=== PATIENT | male | born 1955 | race Caucasian/White ===

== ENCOUNTER 2019-07-01 11:17 | Observation (INO) | payer BC ==
[2019-07-01] MEDS: ASPIRIN 81 MG PO STA ×2 (11:49→11:56)
--- NOTE | 2019-07-01 11:51 | ED ---
General Adult HPI - General Chief complaint: Chest Pain Stated complaint: Chest pain Time Seen by Provider: 07/01/19 11:32 Source: patient Mode of arrival: ambulatory Limitations: no limitations - History of Present Illness Initial comments: Dictation was produced using e-volo dictation software. please excuse any grammatical, word or spelling errors. Chief Complaint: 64-year-old male with no significant comorbidities presents with chest pain. History of Present Illness: 64-year-old male who presents today with chest pain. Patient states he has no medical history. He only takes Viagra as needed. 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 States her pain radiated down his left upper extremity. He also had some nausea and diaphoresis along with this episode. Patient denies any cardiac history. Patient has had symptoms like this approximately 2-3 weeks ago. Patient is concerned that he was having a heart attack came to the emergency department. He states he still has some mild chest symptoms. He states he did strain his pectoral muscle recently after reaching for an object. Patient describes this pain as crushing without exacerbating or mitigating symptoms. States his pain was worse prior to arrival however he still feels it currently. The ROS documented in this emergency department record has been reviewed and confirmed by me. Those systems with pertinent positive or negative responses have been documented in the HPI. All other systems are other negative and/or noncontributory. PHYSICAL EXAM: General Impression: Alert and oriented x3, not in acute distress HEENT: Normocephalic atraumatic, extra-ocular movements intact, pupils equal and reactive to light bilaterally, mucous membranes moist. Cardiovascular: Heart regular rate and rhythm, S1&S2 audible, no murmurs, rubs or gallops Chest: Lungs clear to auscultation bilaterally, no rhonchi, no wheeze, no rales Abdomen: Bowel sounds present, abdomen soft, non-tender, non-distended, no organomegaly Musculoskeletal: Pulses present and equal in all extremities, no peripheral edema Motor: no focal deficits noted Neurological: CN II-XII grossly intact, no focal motor or sensory deficits noted Skin: Intact with no visualized rashes Psych: Normal affect and mood ED course: 64-year-old male with chief complaint of ACS-type symptoms. Vital signs upon arrival shows blood pressure 184/109, worse vital signs within acceptable limits. EKG was obtained on the be abnormal. Discussed patient case immediately with Dr. Thakkar who does not feel that patient's EKG represents ST segment elevation IN. EKG shows changes in the inferior leads with widened QRS. Patient has any cardiac history. There is concern given his symptomatology and abnormal EKG Dr. Whelan was contacted. Dr. Whelan reviewed EKG and evaluate patient at bedside. Dr. Thakkar at bedside recommended lipid panel. Repeat EKG 1 hour. He states to withhold aspirin at this time. Recommends 10 mg IV labetalol and 50 mg losartan twice a day.Laboratory evaluation obtained. CBC, coag Panel, metabolic panel is unremarkable. Cardiac enzymes negative. Chest x-ray is nonacute. Computed tomography scan of the thoracic aorta shows no findings of aneurysm or dissection. Patient reevaluated at bedside found to be stable medical condition. Will admit patient for acute coronary syndrome. Per recommendation by cardiology no blood thinners or antiplatelet medications at this time. Patient understandable agreeable to disposition. Discussed patient case with Dr. Arrington was went except patient's care. EKG interpretation: Ventricular rate 62, sinus rhythm, right bundle branch block,. Interval 140, QRS 144, QTc 412. T-wave inversions inferior leads. No old EKG for comparison. - Related Data Home Medications Medication Instructions Recorded Confirmed Aspirin EC [Ecotrin Low Dose] 81 mg PO DAILY 07/01/19 07/01/19 Fluticasone Nasal [place] [Flonase 1 spr EA NOSTRIL DAILY 07/01/19 07/01/19 Nasal [place]] Ibuprofen [Motrin Ib] 400 mg PO Q6H PRN 07/01/19 07/01/19 Tadalafil [Cialis] 30 mg PO DAILY PRN 07/01/19 07/01/19 Allergies Allergy/AdvReac Type Severity Reaction Status Date / Time No Known Allergies Allergy Verified 07/01/19 11:44 Review of Systems ROS Statement: Those systems with pertinent positive or pertinent negative responses have been documented in the HPI. ROS Other: All systems not noted in ROS Statement are negative. Past Medical History Past Medical History: No Reported History History of Any Multi-Drug Resistant Organisms: None Reported Past Surgical History: No Surgical Hx Reported Past Psychological History: No Psychological Hx Reported Smoking Status: Never smoker Past Alcohol Use History: None Reported Past Drug Use History: Marijuana General Exam Limitations: no limitations Course Vital Signs 07/01/19 07/01/19 07/01/19 11:22 11:50 12:10 Temperature 98.1 F Pulse Rate 82 82 74 Respiratory 18 15 10 L Rate Blood Pressure 184/109 180/104 186/105 O2 Sat by Pulse 96 94 L 93 L Oximetry 07/01/19 07/01/19 07/01/19 12:20 12:30 12:40 Temperature Pulse Rate 79 57 L 59 L Respiratory 25 H 12 12 Rate Blood Pressure 159/94 159/94 164/105 O2 Sat by Pulse 95 94 L 93 L Oximetry 07/01/19 07/01/19 13:00 13:10 Temperature Pulse Rate 61 Respiratory 11 L Rate Blood Pressure 152/101 135/85 O2 Sat by Pulse 95 Oximetry Medical Decision Making - Lab Data Result diagrams: 07/01/19 11:46 07/01/19 11:46 Lab Results 07/01/19 07/01/19 07/01/19 Range/Units 11:46 11:46 11:46 WBC 10.0 (3.8-10.6) k/uL RBC 5.52 (4.30-5.90) m/uL Hgb 17.2 (13.0-17.5) gm/dL Hct 50.4 (39.0-53.0) % MCV 91.3 (80.0-100.0) fL MCH 31.2 (25.0-35.0) pg MCHC 34.1 (31.0-37.0) g/dL RDW 12.1 (11.5-15.5) % Plt Count 280 (150-450) k/uL Neutrophils % 54 % Lymphocytes % 32 % Monocytes % 7 % Eosinophils % 4 % Basophils % 1 % Neutrophils # 5.3 (1.3-7.7) k/uL Lymphocytes # 3.2 (1.0-4.8) k/uL Monocytes # 0.7 (0-1.0) k/uL Eosinophils # 0.4 (0-0.7) k/uL Basophils # 0.1 (0-0.2) k/uL PT 9.8 (9.0-12.0) sec INR 0.9 (<1.2) APTT 23.4 (22.0-30.0) sec Sodium 140 (137-145) mmol/L Potassium 5.0 (3.5-5.1) mmol/L Chloride 106 (98-107) mmol/L Carbon Dioxide 23 (22-30) mmol/L Anion Gap 11 mmol/L BUN 13 (9-20) mg/dL Creatinine 0.83 (0.66-1.25) mg/dL Est GFR (CKD-EPI)AfAm >90 (>60 ml/min/1.73 sqM) Est GFR (CKD-EPI)NonAf >90 (>60 ml/min/1.73 sqM) Glucose 85 (74-99) mg/dL Calcium 9.6 (8.4-10.2) mg/dL Magnesium 2.1 (1.6-2.3) mg/dL Total Bilirubin 0.7 (0.2-1.3) mg/dL AST 34 (17-59) U/L ALT 20 L (21-72) U/L Alkaline Phosphatase 117 (38-126) U/L Troponin I (0.000-0.034) ng/mL Total Protein 7.4 (6.3-8.2) g/dL Albumin 4.5 (3.5-5.0) g/dL Triglycerides 187 H (<150) mg/dL Cholesterol 154 (<200) mg/dL LDL Cholesterol, Calc 78 (0-99) mg/dL HDL Cholesterol 39 L (40-60) mg/dL 07/01/19 Range/Units 11:46 WBC (3.8-10.6) k/uL RBC (4.30-5.90) m/uL Hgb (13.0-17.5) gm/dL Hct (39.0-53.0) % MCV (80.0-100.0) fL MCH (25.0-35.0) pg MCHC (31.0-37.0) g/dL RDW (11.5-15.5) % Plt Count (150-450) k/uL Neutrophils % % Lymphocytes % % Monocytes % % Eosinophils % % Basophils % % Neutrophils # (1.3-7.7) k/uL Lymphocytes # (1.0-4.8) k/uL Monocytes # (0-1.0) k/uL Eosinophils # (0-0.7) k/uL Basophils # (0-0.2) k/uL PT (9.0-12.0) sec INR (<1.2) APTT (22.0-30.0) sec Sodium (137-145) mmol/L Potassium (3.5-5.1) mmol/L Chloride (98-107) mmol/L Carbon Dioxide (22-30) mmol/L Anion Gap mmol/L BUN (9-20) mg/dL Creatinine (0.66-1.25) mg/dL Est GFR (CKD-EPI)AfAm (>60 ml/min/1.73 sqM) Est GFR (CKD-EPI)NonAf (>60 ml/min/1.73 sqM) Glucose (74-99) mg/dL Calcium (8.4-10.2) mg/dL Magnesium (1.6-2.3) mg/dL Total Bilirubin (0.2-1.3) mg/dL AST (17-59) U/L ALT (21-72) U/L Alkaline Phosphatase (38-126) U/L Troponin I <0.012 (0.000-0.034) ng/mL Total Protein (6.3-8.2) g/dL Albumin (3.5-5.0) g/dL Triglycerides (<150) mg/dL Cholesterol (<200) mg/dL LDL Cholesterol, Calc (0-99) mg/dL HDL Cholesterol (40-60) mg/dL Disposition Clinical Impression: Chest pain Disposition: ADMITTED IP TO THIS [facility] Condition: Fair Referrals: Sen Whelan MD [STAFF PHYSICIAN] - 1 Week (Follow-up with Dr. Whelan/Sarahy Hidalgo/Gladis Vilchis in 2 weeks) None,Stated [Primary Care Provider] - 1-2 days Decision Time: 14:11
[2019-07-01] MEDS ORDERED: LABETALOL 5 MG/ML VIAL MDV IVP STA (11:56)
[2019-07-01 12:17] LABS: INR 0.9 (<1.2); Partial Thromboplastin Time 23.4 sec (22.0-30.0); Prothrombin Time 9.8 sec (9.0-12.0)
[2019-07-01 12:20] LABS: Basophils # (A) 0.1 k/uL (0-0.2); Basophils % (A) 1 %; Eosinophils # (A) 0.4 k/uL (0-0.7); Eosinophils % (A) 4 %; HCT 50.4 % (39.0-53.0); HGB 17.2 gm/dL (13.0-17.5); Lymphocytes # (A) 3.2 k/uL (1.0-4.8); Lymphocytes % (A) 32 %; MCH 31.2 pg (25.0-35.0); MCHC 34.1 g/dL (31.0-37.0); MCV 91.3 fL (80.0-100.0); Mean Platelet Volume 6.3; Monocytes # (A) 0.7 k/uL (0-1.0); Monocytes % (A) 7 %; Neutrophils # (A) 5.3 k/uL (1.3-7.7); Neutrophils % (A) 54 %; Platelet Count 280 k/uL (150-450); RBC 5.52 m/uL (4.30-5.90); RDW 12.1 % (11.5-15.5)
[2019-07-01 12:24] LABS: ALT 20 U/L (21-72); AST 34 U/L (17-59); African American GFR (CKD) >90 (>60 ml/min/1.73 sqM); Albumin 4.5 g/dL (3.5-5.0); Alkaline Phosphatase 117 U/L (38-126); Anion Gap 11 mmol/L; Blood Urea Nitrogen 13 mg/dL (9-20); Calcium 9.6 mg/dL (8.4-10.2); Carbon Dioxide 23 mmol/L (22-30); Chloride 106 mmol/L (98-107); Cholesterol 154 mg/dL (<200); Glucose 85 mg/dL (74-99); HDL Cholesterol 39 mg/dL (40-60); LDL Cholesterol,Calculated 78 mg/dL (0-99); Magnesium 2.1 mg/dL (1.6-2.3); Sodium 140 mmol/L (137-145); Total Bilirubin 0.7 mg/dL (0.2-1.3); Total Protein 7.4 g/dL (6.3-8.2); Triglycerides 187 mg/dL (<150)
--- NOTE | 2019-07-01 12:31 | XR ---
EXAMINATION TYPE: XR chest 2V DATE OF EXAM: 07/01/2019 COMPARISON: NONE HISTORY: Chest pain and shortness of breath TECHNIQUE: Frontal and lateral views of the chest are obtained. FINDINGS: There is no focal air space opacity, pleural effusion, or pneumothorax seen. The cardiac silhouette size is within normal limits. Aorta is dense and tortuous. There are overlying cardiac le ads. Suspect some basilar subsegmental atelectatic changes are present. The osseous structures are in tact. Increased AP diameter of the chest is noted. IMPRESSION: Subsegmental atelectasis. Additional findings above, follow-up as indicated.
[2019-07-01] MEDS: LOSARTAN 50 MG TAB PO SCH ×2 (12:44→20:01)
--- NOTE | 2019-07-01 13:25 | P.CRDCN ---
History of Present Illness History of present illness: This is Dr. Whelan dictating a consult on this patient The patient was interviewed and examined by me Call to the emergency room to evaluate this patient with chest discomfort and abnormal ECG IMPRESSION / ASSESSMENT: Hypertensive urgency, symptomatic The chest discomfort radiating through the back and left arm Right bundle branch block left anterior fascicular block on 12-lead EKG Noncompliance with antihypertensive therapy as prescribed by his [facility] primary care physician as above PLAN: IV labetalol 10 mg 1 dose By mouth losartan 50 mg twice daily Discussed with ER physician Atorvastatin 40 mg daily Hold off on aspirin CT of the chest to assess the thoracic aorta Serial enzymes Serial ECGs Lipid panel HPI This morning the patient felt disoriented and had a vague sensation in the chest with numbness down the left arm. This week sensation also radiated through to the back He has a history of hypertension and his blood pressure has been elevated lately. He stopped taking his antihypertensive therapy that was prescribed by Dr. Lyles ROS: No fever chills or rigors, no cough, phlegm or expectoration, no nausea, vomiting or diarrhea, no hematuria, dysuria, no musculoskeletal complaints, no strokes or seizures, no skin lesions. EXAMINATION: 180 105 mmHg, pulse rate in the 70s no JVD Patient looks fairly comfortable It sounds are normal no rhonchi no crackles Heart sounds S1 and S2 are normal no murmurs or gallop or rub Abdomen is soft nontender Extremity is warm no edema REVIEW OF LABS, ECG & MEDICAL DATA labs are reviewed sodium 140, potassium 5.0, BUN 13 creatinine 0.83, troponin normal, triglycerides 187, total cholesterol 154 LDL 78 HDL 39 Normal white count hemoglobin 17.2 Never smoker Past Medical History Past Medical History: No Reported History History of Any Multi-Drug Resistant Organisms: None Reported Past Surgical History: No Surgical Hx Reported Past Psychological History: No Psychological Hx Reported Smoking Status: Never smoker Past Alcohol Use History: None Reported Past Drug Use History: Marijuana Medications and Allergies Home Medications Medication Instructions Recorded Confirmed Type Aspirin EC [Ecotrin Low Dose] 81 mg PO DAILY 07/01/19 07/01/19 History Fluticasone Nasal [place] [Flonase 1 spr EA NOSTRIL DAILY 07/01/19 07/01/19 History Nasal [place]] Ibuprofen [Motrin Ib] 400 mg PO Q6H PRN 07/01/19 07/01/19 History Tadalafil [Cialis] 30 mg PO DAILY PRN 07/01/19 07/01/19 History Allergies Allergy/AdvReac Type Severity Reaction Status Date / Time No Known Allergies Allergy Verified 07/01/19 11:44 Physical Exam Vitals: Vital Signs Temp Pulse Resp BP Pulse Ox 07/01/19 13:10 135/85 07/01/19 13:00 61 11 L 152/101 95 07/01/19 12:40 59 L 12 164/105 93 L 07/01/19 12:30 57 L 12 159/94 94 L 07/01/19 12:20 79 25 H 159/94 95 07/01/19 12:10 74 10 L 186/105 93 L 07/01/19 11:50 82 15 180/104 94 L 07/01/19 11:22 98.1 F 82 18 184/109 96 Intake and Output 06/30/19 07/01/19 07/01/19 22:59 06:59 14:59 Other: Weight 108.862 kg Results 07/01/19 11:46 07/01/19 11:46 Cardiac Enzymes 07/01/19 07/01/19 Range/Units 11:46 11:46 AST 34 (17-59) U/L Troponin I <0.012 (0.000-0.034) ng/mL Coagulation 07/01/19 Range/Units 11:46 PT 9.8 (9.0-12.0) sec APTT 23.4 (22.0-30.0) sec Lipids 07/01/19 Range/Units 11:46 Triglycerides 187 H (<150) mg/dL Cholesterol 154 (<200) mg/dL HDL Cholesterol 39 L (40-60) mg/dL CBC 07/01/19 Range/Units 11:46 WBC 10.0 (3.8-10.6) k/uL RBC 5.52 (4.30-5.90) m/uL Hgb 17.2 (13.0-17.5) gm/dL Hct 50.4 (39.0-53.0) % Plt Count 280 (150-450) k/uL Comprehensive Metabolic Panel 07/01/19 Range/Units 11:46 Sodium 140 (137-145) mmol/L Potassium 5.0 (3.5-5.1) mmol/L Chloride 106 (98-107) mmol/L Carbon Dioxide 23 (22-30) mmol/L BUN 13 (9-20) mg/dL Creatinine 0.83 (0.66-1.25) mg/dL Glucose 85 (74-99) mg/dL Calcium 9.6 (8.4-10.2) mg/dL AST 34 (17-59) U/L ALT 20 L (21-72) U/L Alkaline Phosphatase 117 (38-126) U/L Total Protein 7.4 (6.3-8.2) g/dL Albumin 4.5 (3.5-5.0) g/dL Current Medications Generic Name Dose Route Start Last Admin Trade Name Freq PRN Reason Stop Dose Admin Losartan Potassium 50 mg 07/01/19 12:00 07/01/19 12:44 Cozaar PO 50 mg BID KYARA Administration Intake and Output 06/30/19 07/01/19 07/01/19 22:59 06:59 14:59 Other: Weight 108.862 kg Patient Weight 07/02/19 06:59 Weight 108.862 kg 07/01/19 11:46 07/01/19 11:46
--- NOTE | 2019-07-01 13:50 | CT ---
EXAMINATION TYPE: CT angio thor/abd pel aorta DATE OF EXAM: 07/01/2019 COMPARISON: None. HISTORY: chest and back pain rule out dissection. CT DLP: 2351.8 mGycm. Automated Exposure Control for Dose Reduction was Utilized. CONTRAST: CTA scan of the thorax, abdomen and pelvis is performed without and with IV Contrast, patient injecte d with 100 mL of Isovue 370. 3-D reconstruction images are created and a workstation and reviewed. FINDINGS: VASCULAR: There is a 4 vessel origin from aortic arch which is normal variant. There is patent celiac artery, SMA, bilateral renal arteries with 3 identified bilaterally and JIMY. There is patent iliac a rteries into bifurcation and patent femoral arteries bilateral groin into bifurcation. No significant plaque or stenosis. No aneurysm. No linear hypodensity to suggest dissection. LUNGS: Dependent and linear atelectasis bilateral lower lobes. Slightly elevated left hemidiaphragm. There is no pleural effusion or pneumothorax seen. The tracheobronchial tree is patent. No suspici ous masses. MEDIASTINUM: There are prominent thoracic lymph nodes throughout the mediastinum without definitive a bnormal enlargement. No cardiomegaly or pericardial effusion is seen. LIVER/GB: No significant abnormality is appreciated. PANCREAS: No significant abnormality is seen. SPLEEN: No significant abnormality is seen. ADRENALS: No significant abnormality is seen. KIDNEYS: No significant abnormality is seen. BOWEL: Some scattered diverticula in the left and sigmoid colon. Normal-appearing appendix from cecum . Suboptimal evaluation of stomach due to poor distention. GENITAL ORGANS: Scattered pelvic phleboliths. LYMPH NODES: No greater than 1cm abdominal or pelvic lymph nodes are appreciated. OSSEOUS STRUCTURES: S-shaped scoliosis. Multilevel spurring and disc space narrowing. Hemangioma righ t L3 level. Some facet arthropathy lower lumbar levels. OTHER: No significant additional abnormality is seen. IMPRESSION: No aortic aneurysm or dissection. No suspicious acute findings identified.
[2019-07-01] MEDS ORDERED: NITROGLYCERIN SL TABS 0.4 MG TAB SUBLINGUAL PRN (14:11)
[2019-07-01] MEDS ORDERED: ACETAMINOPHEN TAB 325 MG TAB PO PRN (16:42)
[2019-07-01] MEDS ORDERED: hydrALAZINE HCL 20 MG/ML 1 ML VIAL IVP PRN (16:43)
--- NOTE | 2019-07-01 23:27 | P.HPIM ---
History of Present Illness H&P Date: 07/01/19 Chief Complaint: Chest pain Patient is a 64-year-old male with a known history of hypertension, currently not taking any medications came to ER with complaints of chest pain. Patient has been having on and off chest pains recently. 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 Chest pain radiated to the left arm like a shooting down pain and felt ringing in the ears. Chest pain is mainly across the anterior chest. Last about 2 minutes. Associated nausea and diaphoresis. No history of prior cardiac problems. Patient has been having symptoms for the past 2-3 weeks on and off lasting about 1-2 minutes. Due to sudden radiation of the pain made him concerned about heart attack and came to ER for evaluation. Patient's blood pressure was 184/109. No cough or sputum production. No headache or dizziness or lightheadedness. No fever no chills. No recent illnesses. EKG showed right bundle branch block. Troponin 1 negative Chest x-ray showed no acute cardiopulmonary process. Troponin 2 negative LDL 78 Review of Systems Constitutional: Patient denies any fever or chills . No generalized weakness or weight loss. Abdomen: Patient denied nausea vomiting and diarrhea and abdominal pain. Cardiovascular: Patient denies any chest pain or short of breath no palpitations. Respiratory: patient denied any cough is from production. No shortness of breath Neurologic: Patient denied any numbness or tingling headache. Musculoskeletal: Patient denies any complaints of joint swelling or deformity. Skin: Negative Psychiatric: Negative Endocrine: No heat or cold intolerance. No recent weight gain. Genitourinary: No dysuria or hematuria. All other 14 point ROS negative except the above Past Medical History Past Medical History: Hypertension Additional Past Medical History / Comment(s): sinus issues/ headaches History of Any Multi-Drug Resistant Organisms: None Reported Past Surgical History: Tonsillectomy Past Anesthesia/Blood Transfusion Reactions: No Reported Reaction Past Psychological History: No Psychological Hx Reported Smoking Status: Never smoker Past Alcohol Use History: None Reported Past Drug Use History: Marijuana Medications and Allergies Home Medications Medication Instructions Recorded Confirmed Type Aspirin EC [Ecotrin Low Dose] 81 mg PO DAILY 07/01/19 07/01/19 History Fluticasone Nasal [place] [Flonase 1 spr EA NOSTRIL DAILY 07/01/19 07/01/19 History Nasal [place]] Ibuprofen [Motrin Ib] 400 mg PO Q6H PRN 07/01/19 07/01/19 History Tadalafil [Cialis] 30 mg PO DAILY PRN 07/01/19 07/01/19 History Allergies Allergy/AdvReac Type Severity Reaction Status Date / Time No Known Allergies Allergy Verified 07/01/19 11:44 Physical Exam Vitals: Vital Signs Temp Pulse Pulse Resp BP BP Pulse Ox 07/01/19 16:13 178/103 07/01/19 15:58 59 L 18 07/01/19 15:51 98.2 F 59 L 18 187/104 95 07/01/19 15:00 94 L 07/01/19 14:30 143/88 07/01/19 13:30 86 22 135/85 95 07/01/19 13:10 135/85 07/01/19 13:00 61 11 L 152/101 95 07/01/19 12:40 59 L 12 164/105 93 L 07/01/19 12:30 57 L 12 159/94 94 L 07/01/19 12:20 79 25 H 159/94 95 07/01/19 12:10 74 10 L 186/105 93 L 07/01/19 11:50 82 15 180/104 94 L 07/01/19 11:22 98.1 F 82 18 184/109 96 Intake and Output 07/01/19 07/01/19 07/01/19 06:59 14:59 22:59 Other: Voiding Method Toilet Weight 108.862 kg PHYSICAL EXAMINATION: Patient is lying in the bed comfortably, no acute distress, awake alert and oriented.. HEENT: Normocephalic. Neck is supple. Pupils reactive. Nostrils clear. Oral cavity is moist. Ears reveal no drainage. Neck reveals no JVD, carotid bruits, or thyromegaly. CHEST EXAMINATION: Trachea is central. Symmetrical expansion. Lung lobo clear to auscultation and percussion. CARDIAC: Normal S1, S2 with no gallops. No murmurs ABDOMEN: Soft. Bowel sounds normal. No organomegaly. No abdominal bruits. Extremities: reveal no edema. No clubbing or cyanosis Neurologically awake, alert, oriented x3 with well-coordinated movements. No focal deficits noted Skin: No rash or skin lesions. Psychiatric: Coperative. Nonsuicidal Musculoskeletal: No joint swelling or deformity. Normal range of motion. Results CBC & Chem 7: 07/01/19 11:46 07/01/19 11:46 Labs: Abnormal Lab Results - Last 24 Hours (Table) 07/01/19 Range/Units 11:46 ALT 20 L (21-72) U/L Triglycerides 187 H (<150) mg/dL HDL Cholesterol 39 L (40-60) mg/dL Thrombosis Risk Factor Assmnt - DVT/VTE Prophylaxis DVT/VTE Prophylaxis: Pharmacologic Prophylaxis ordered - Choose All That Apply Any of the Below Risk Factors Present?: Yes Each Factor Represents 1 point: Obesity (BMI >25) Other Risk Factors: Yes Each Risk Factor Represents 2 Points: Age 61-74 years Thrombosis Risk Factor Assessment Total Risk Factor Score: 3 Thrombosis Risk Factor Assessment Level: Moderate Risk Assessment and Plan Assessment: Hypertensive urgency. Chest pain. Rule out acute coronary syndrome Noncompliance with blood pressure medications. Abnormal EKG. rBBB and anterior fascicular block. No history of smoking History of marijuana use DVT prophylaxis with early ambulation Plan: Patient will be continued on telemetry monitoring. Troponin 2 negative. Patient was started on losartan 50 mg twice a day. Was given a dose of IV labetalol in the ER. Continue to follow closely. Cardiology is on board. Further recommendations based on the clinical course. Time with Patient: Greater than 30
[2019-07-02] MEDS: ATORVASTATIN 40 MG TAB PO SCH ×2 (02:06→20:04)
[2019-07-02] MEDS: LOSARTAN 50 MG TAB PO SCH ×2 (08:35→20:04)
[2019-07-02] MEDS: amLODIPine 5 MG TAB PO SCH (08:36)
[2019-07-02] MEDS ORDERED: SODIUM CHLORIDE 0.9% 1,000 ML in EMPTY BAG 1 BAG IV ONE (08:44)
[2019-07-02] MEDS ORDERED: ALPRAZolam 0.5 MG TAB PO PRN (08:44)
[2019-07-02] MEDS ORDERED: ALPRAZolam 0.25 MG TAB PO PRN (08:44)
[2019-07-02] MEDS ORDERED: ASPIRIN 325 MG TAB PO ONE (08:55)
[2019-07-02] MEDS: FLUTICASONE 50MCG/SPRAY NASAL 16GM EA NOSTRIL SCH (09:10)
[2019-07-02] MEDS ORDERED: IV FLUID CONTINUATION 950 ML IV ONE (09:29)
[2019-07-02] MEDS ORDERED: fentaNYL (PF) 50 MCG/ML 2 ML AMP ONE (09:34)
[2019-07-02] MEDS ORDERED: VERAPAMIL 2.5 MG/ML 2 ML AMP ONE (09:34)
[2019-07-02] MEDS ORDERED: HEPARIN SODIUM 1,000 UN/ML (10ML VL) ONE (09:34)
[2019-07-02] MEDS ORDERED: LIDOCAINE 1% INJ 10MG/ML (20 ML MDV) ONE (09:34)
[2019-07-02] MEDS ORDERED: fentaNYL (PF) 50 MCG/ML 2 ML AMP IV ONE (09:52)
[2019-07-02] MEDS ORDERED: MIDAZOLAM 2 MG/2 ML VIAL IV ONE (09:52)
[2019-07-02] MEDS ORDERED: hydrALAZINE HCL 20 MG/ML 1 ML VIAL ONE (09:55)
[2019-07-02] MEDS ORDERED: LIDOCAINE 1% INJ 10MG/ML (20 ML MDV) SQ ONE (09:56)
[2019-07-02] MEDS: VERAPAMIL SYRINGE (5 MG/10 ML) INTRAARTER ONE ×2 (10:02→10:17)
[2019-07-02] MEDS ORDERED: HEPARIN SODIUM 1,000 UN/ML (10ML VL) IV ONE (10:03)
[2019-07-02] MEDS ORDERED: IOPAMIDOL-370 125ML BTL INJ ONE (10:17)
[2019-07-02] MEDS ORDERED: RX INFO: IV CONTRAST WAS GIVEN 1 EACH MISC MISCELLANE PRN (10:29)
--- NOTE | 2019-07-02 10:36 | P.CARDCATH ---
Date of Procedure: 07/02/19 Preoperative Diagnosis: Chest pains suggestive of unstable angina Postoperative Diagnosis: Normal left heart cath Procedure(s) Performed: Left heart cath with left ventriculography Description of Procedure: HISTORY: This is a 64-year-old gentleman with history of hypertension who was admitted to the hospital with complaints of chest pain radiating to the left arm and also uncontrolled hypertension. Patient cardiac enzymes and EKGs were negative. Patient has family history of ischemic heart disease. Because of typical symptoms and family history, patient is advised to have a cardiac catheterization for definitive diagnosis. CONSENT:I have discussed the risks, benefits and alternative therapies for the above-mentioned procedure and for both sedation/analgesia as well as necessary blood product administration, if indicated, as they pertain to this patient. The patient has indicated understanding and acceptance of the risks and procedures discussed. PROCEDURE: Patient was brought to the lab in a fasting state. Patient was given some IV sedation. The right wrist is infiltrated with lidocaine and right radial artery was entered using Seldinger technique. A 6-[place] catheter was left in place and selective coronary arteriography and left ventriculography was performed. Patient tolerated the procedure well. WI band was applied for hemostasis. No immediate complications were noted and patient was transferred to observation unit in a stable condition Conscious Sedation: Versed 1mg Fentanyl 50 g Duration 29minutes HEMODYNAMICS: The aortic pressure was about 1 7100. The left ventricle end-barron stolic pressure is about 10-15. There was no gradient across the aortic valve SELECTIVE CORONARY ARTERIOGRAPHY: LEFT MAIN: Normal length and free of occlusive disease THE LEFT ANTERIOR DESCENDING CORONARY ARTERY:. This is a fairly caliber vessel giving rise to good-sized diagonal septal branches. The LAD and branches are free of occlusive disease THE LEFT CIRCUMFLEX AND IS CORONARY ARTERY:. This is a moderate caliber vessel giving rise to good-sized OM branch. The circumflex and is coronary artery and branches are free of occlusive disease THE RIGHT CORONARY ARTERY:. This is a good caliber vessel giving rise good-sized PDA and PLV and dominant in distribution. Free of occlusive disease LEFT VENTRICULOGRAPHY:. Show normal-sized cardiac silhouette with good systolic function FINAL IMPRESSION:. Normal coronary arteries. Normal LV function PLAN: Maximum medical therapy and risk factor modification PROGNOSIS:. Good
--- NOTE | 2019-07-02 11:25 | P.PN ---
Subjective This is a pleasant 64-year-old male past medical history significant for hypertension. He was seen initially by Dr. Foley yesterday and initiated on losartan 50 mg twice a day and atorvastatin 40 mg daily. He underwent a CT of the chest to assess the thoracic aorta which was unremarkable and negative for aneurysm or dissection. Cardiac enzymes reviewed and were negative 3. He is seen and examined sitting up in bed in no acute distress. He continues to have exertional chest discomfort. Blood pressure this morning 173/106 with a heart rate of 67. GENERAL: Well-appearing, well-nourished and in no acute distress. NECK: Supple without JVD or thyromegaly. LUNGS: Breath sounds clear to auscultation bilaterally. Respiration equal and u nlabored. No wheezes, rales or rhonchi. HEART: Regular rate and rhythm without murmurs, rubs or gallops. S1 and S2 heard. EXTREMITIES: Normal range of motion, no edema. No clubbing or cyanosis. Fay pheral pulses intact. ASSESSMENT Chest pain suggestive of unstable angina Hypertension PLAN Recommend proceeding with cardiac catheterization to assess for underlying coronary artery disease.I have discussed the risks, benefits and alternative therapies for the above-mentioned procedure and for both sedation/analgesia as well as necessary blood product administration, if indicated, as they pertain to this patient. The patient has indicated understanding and acceptance of the risks and procedures discussed. Questions have been answered appropriately to the patient and his . He is agreeable to move forward with the above-stated procedure. Continue losartan 50 mg twice a day and initiate amlodipine 5 mg daily. Further recommendations to follow based upon cardiac catheterization findings. Nurse Practitioner note has been reviewed, I agree with a documented findings and plan of care. Patient was seen and examined. Objective - Vital Signs Vital signs: Vital Signs Temp 98 F 07/02/19 10:35 Pulse 76 07/02/19 10:35 Resp 18 07/02/19 10:35 BP 172/88 07/02/19 10:35 Pulse Ox 94 L 07/02/19 10:35 Intake & Output 07/01/19 07/02/19 07/02/19 18:59 06:59 18:59 Intake Total 100 Balance 100 Weight 108.862 kg Intake: IV 100 Other: Voiding Method Toilet Toilet Toilet # Voids 1 - Labs CBC & Chem 7: 07/01/19 11:46 10/23/19 11:46 Labs: Abnormal Lab Results - Last 24 Hours (Table) 07/01/19 Range/Units 11:46 ALT 20 L (21-72) U/L Triglycerides 187 H (<150) mg/dL HDL Cholesterol 39 L (40-60) mg/dL
[2019-07-02] MEDS: LABETALOL 100 MG TAB PO SCH ×2 (11:52→20:04)
[2019-07-02] MEDS: SODIUM CHLORIDE 0.9% 1,000 ML IV SCH (11:53)
--- NOTE | 2019-07-02 23:32 | P.PN ---
Subjective Progress Note Date: 07/02/19 Principal diagnosis: Uncontrolled hypertension Patient is a 64-year-old male with a known history of hypertension, currently not taking any medications came to ER with complaints of chest pain. Patient has been having on and off chest pains recently. 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 Chest pain radiated to the left arm like a shooting down pain and felt ringing in the ears. Chest pain is mainly across the anterior chest. Last about 2 minutes. Associated nausea and diaphoresis. No history of prior cardiac problems. Patient has been having symptoms for the past 2-3 weeks on and off lasting about 1-2 minutes. Due to sudden radiation of the pain made him concerned about heart attack and came to ER for evaluation. Patient's blood pressure was 184/109. No cough or sputum production. No headache or dizziness or lightheadedness. No fever no chills. No recent illnesses. EKG showed right bundle branch block. Troponin 1 negative Chest x-ray showed no acute cardiopulmonary process. Troponin 2 negative LDL 78 07/02/2019 Patient is awake alert and oriented. Status post cardiac catheterization today showed normal coronaries. Otherwise blood pressure is uncontrolled. Currently on Norvasc and losartan and labetalol. Cardiology is following. Patient still complains of intermittent chest pains. No shortness of breath. No other associated symptoms. Is from production. No fever no chills. Current medications reviewed. Objective - Vital Signs Vital signs: Vital Signs Temp 98.0 F 07/02/19 16:00 Pulse 78 07/02/19 16:00 Resp 18 07/02/19 16:00 BP 159/98 07/02/19 16:00 Pulse Ox 94 L 07/02/19 16:00 Intake & Output 07/02/19 07/02/19 07/03/19 06:59 18:59 06:59 Intake Total 100 Balance 100 Intake: IV 100 Other: Voiding Method Toilet Toilet # Voids 1 1 - Exam PHYSICAL EXAMINATION: Patient is lying in the bed comfortably, no acute distress, awake alert and oriented.. HEENT: Normocephalic. Neck is supple. Pupils reactive. Nostrils clear. Oral cavity is moist. Ears reveal no drainage. Neck reveals no JVD, carotid bruits, or thyromegaly. CHEST EXAMINATION: Trachea is central. Symmetrical expansion. Lung lobo clear to auscultation and percussion. CARDIAC: Normal S1, S2 with no gallops. No murmurs ABDOMEN: Soft. Bowel sounds normal. No organomegaly. No abdominal bruits. Extremities: reveal no edema. No clubbing or cyanosis Neurologically awake, alert, oriented x3 with well-coordinated movements. No focal deficits noted Skin: No rash or skin lesions. Psychiatric: Coperative. Nonsuicidal Musculoskeletal: No joint swelling or deformity. Normal range of motion. - Labs CBC & Chem 7: 07/01/19 11:46 07/01/19 11:46 Assessment and Plan Assessment: Hypertensive urgency. Chest pain. Ruled out acute coronary syndrome. Status post cardiac catheterization showing normal coronaries. Noncompliance with blood pressure medications. Abnormal EKG. rBBB and anterior fascicular block. No history of smoking History of marijuana use DVT prophylaxis with early ambulation Plan: Patient will be continued on telemetry monitoring. Troponin 3 negative. Patient was started on losartan 50 mg twice a day. Was given a dose of IV labetalol in the ER. Added Norvasc and labetalol. Monitor blood pressure closely and titrate as needed. Cardiology is on board. Further recommendations based on the clinical course. Time with Patient: Greater than 30
[2019-07-03] MEDS: SODIUM CHLORIDE 0.9% 1,000 ML IV SCH (02:41)
[2019-07-03 03:47] VITALS: BP 133/73; PULSE 77; RESP 15; TEMP 97.7
[2019-07-03] MEDS: LOSARTAN 50 MG TAB PO SCH (07:39)
[2019-07-03] MEDS: amLODIPine 5 MG TAB PO SCH (07:40)
[2019-07-03] MEDS: LABETALOL 100 MG TAB PO SCH (07:42)
[2019-07-03] MEDS: FLUTICASONE 50MCG/SPRAY NASAL 16GM EA NOSTRIL SCH (07:43)
== END 2019-07-03 09:06 | disposition home or self-care (01) ==
LOC: EC 11:17 → 1SOBS 14:11
PROVIDERS: ADMIT Internal Medicine; ATTEND Internal Medicine
DX: R07.89 Other chest pain (principal); I16.0 Hypertensive urgency; I45.2 Bifascicular block; I10 Essential (primary) hypertension; Z91.14 Patient's other noncompliance with medication regimen; Z79.82 Long term (current) use of aspirin; Z79.899 Other long term (current) drug therapy; Z87.09 Personal history of other diseases of the respiratory system
CPT/HCPCS: 99152; 99153; 96374; 99285; 36415; 93005; 93458; 80061; 80053; 83735; 84484; 85025; 85610; 85730; 71046; 71275; 74174; G0378 ×3; C1769; C1894; J2250; J2001; J3010; J1644; Q9967 ×2

== ENCOUNTER → 2019-10-05 | Outpatient (CLI) | payer BC ==
[2019-10-05 16:04] LABS: African American GFR (CKD) 92.4 (60.0-200.0); Anion Gap 5.1 mmol/L (4.00-12.00); Calcium 9.9 mg/dL (8.7-10.3); Carbon Dioxide 31.9 mmol/L (21.6-31.8); Non-African American GFR(CKD) 79.7 (60.0-200.0); Potassium 4.4 mmol/L (3.5-5.5)
== END | disposition home or self-care (01) ==
LOC: LABWHC1 10:14
PROVIDERS: ATTEND Physician Assistant
DX: I42.9 Cardiomyopathy, unspecified (principal); I10 Essential (primary) hypertension
CPT/HCPCS: 36415; 80048; 84443; 84481